=== PATIENT | female | born 1955 | race Caucasian/White ===

== ENCOUNTER 2017-04-24 15:53 | Emergency (ER) | payer MEDICARE, BC ==
[2017-04-24 16:10] VITALS: BP 158/72
--- NOTE | 2017-04-24 16:24 | UC ---
Complaint Female HPI - HPI Summary HPI Summary: 61 y/o female presents to the urgent care c/o pressure, frequency and burning on urination and left lower quadrant pain since yesterday. Pt states her pain is 8/10 radiating to her left lower back. Pt states she has HX of kidney stones approximately 2 years ago where her ureter was burned during the procedure to remove stone. Pt also states PMHX DM type II, diverticulitis and gastroperesis, B/L hip replacement. She had a bowel moment yesterday with mild blood in the stool. Pt has taking Oxycodone 10mg PO and ibuprofen 800mg PO this morning at 7 am to alleviate symptoms. Last night she had a normal BM, but she thinks she saw blood in the stool. This morning her BM were normal. Pt denies vaginal discharge or bleeding, SOB, chest pain, N/V/D. - History Of Current Complaint Chief Complaint: UCGU Stated Complaint: URINARY Time Seen by Provider: 04/24/17 16:10 Hx Obtained From: Patient Hx Last Menstrual Period: menopausal ?: No Onset/Duration: Gradual Onset, Lasting Days - 1 day, Still Present Timing: Intermittent, Lasting Minutes Severity Initially: Mild Severity Currently: Moderate Pain Intensity: 8 Pain Scale Used: 0-10 Numeric Character: Burning, Colicy Aggravating Factor(s): Urination Alleviating Factor(s): Meds Associated Signs And Symptoms: Positive: Back Pain. Negative: Fever, Vaginal Bleeding/Discharge, Vaginal Discharge, Nausea, Vomiting(# Of Episodes =), Genital Swelling, Genital Blisters - Risk Factors Ectopic Risk Factor: Negative - Allergies/Home Medications Allergies/Adverse Reactions: Allergies Allergy/AdvReac Type Severity Reaction Status Date / Time Sulfa Antibiotics Allergy Rash Verified 04/24/17 16:10 Trazodone Allergy Shakes Verified 04/24/17 16:10 Zolpidem [From Ambien] Allergy Hallucinati Verified 04/24/17 16:10 ons Home Medications: Home Medications ALPRAZolam TAB* [Xanax TAB*] 0.5 mg PO BEDTIME PRN 04/24/17 [History Confirmed 04/24/17] DULoxetine DR CAP* [Cymbalta CAP*] 60 mg PO DAILY 04/24/17 [History Confirmed ] Ibuprofen TAB* [Motrin TAB* 800 MG] 800 mg PO Q6H PRN 04/24/17 [History Confirmed 04/24/17] Levothyroxine TAB* [Synthroid 88 MCG TAB*] 88 mcg PO SEE INSTRUCTIONS 04/24/17 [ History Confirmed 04/24/17] Oxycodone TAB(NF) [Oxycodone HCl 10 MG] 10 mg PO SEE INSTRUCTIONS PRN 04/24/17 [ History Confirmed 04/24/17] Promethazine TAB* [Phenergan Tab*] 25 mg PO Q6H PRN 04/24/17 [History Confirmed 04/24/17] metFORMIN* [Glucophage 500 MG TAB *] 1,000 mg PO DAILY 04/24/17 [History Confirmed 04/24/17] metFORMIN* [Glucophage 500 MG TAB *] 500 mg PO BEDTIME 04/24/17 [History Confirmed 04/24/17] PMH/Surg Hx/FS Hx/Imm Hx Previously Healthy: Yes Endocrine History: Diabetes, Hypothyroidism Respiratory History: Asthma GI/ History: Kidney Stones, Diverticulitis Other GI/ History: gastroperesis - Surgical History Surgical History: Yes Surgery Procedure, Year, and Place: B/L HIP REPLACEMENT. KIDNEY STONE SX. APPY. T&A. CHOLECYTECTOMY. HYSTERECTOMY. PINULECTOMY. RIGHT ELBOW SX. NEPHROSTOMY TUBE. LAP EXPLORATORY. BREAST LIFT - Family History Known Family History: Positive: Cardiac Disease, Hypertension, Diabetes - Social History Occupation: Employed Full-time Lives: With Family Alcohol Use: Rare Substance Use Type: None Smoking Status (MU): Former Smoker When Did the Patient Quit Smoking/Using Tobacco: 2006 Review of Systems Constitutional: Negative Skin: Negative Eyes: Negative ENT: Negative Respiratory: Negative Cardiovascular: Negative Gastrointestinal: Abdominal Pain - LLQ Genitourinary: Frequency, Urgency Motor: Negative Neurovascular: Negative Musculoskeletal: Negative Neurological: Negative Psychological: Negative Is Patient Immunocompromised?: No All Other Systems Reviewed And Are Negative: Yes Physical Exam Triage Information Reviewed: Yes Vital Signs: Initial Vital Signs Temp 97.3 F 04/24/17 15:59 Pulse 97 04/24/17 15:59 Resp 18 04/24/17 15:59 BP 158/72 04/24/17 15:59 Pulse Ox 97 04/24/17 15:59 - Additional Comments VITAL SIGNS: Reviewed. GENERAL: Patient is a well developed and nourished who is lying comfortable in the stretcher. Patient is not in any acute respiratory distress. HEAD AND FACE: Normocephalic and atraumatic. EYES: PERRLA, EOMI x 2, No injected conjunctiva. EARS: Hearing grossly intact. Ear canals and tympanic membranes are WNL. MOUTH: Oropharynx within normal limits. NECK: Supple, trachea is midline, no adenopathy, no JVD. CHEST: Symmetric, no tenderness at palpation LUNGS: Clear to auscultation bilaterally. No wheezing or crackles. ABDOMEN::: Nontender, Flat with no distention. No surface trauma, normal bowel sounds present in all four quadrants. Moderate tenderness on LLQ on deep palpation, no rebound, no guarding, rigidity to palpation. No masses palpated, no pulsation in epigastric area. No organomegaly. Negative Kiln signs. No periumbilical tenderness. NT over McBurneys point. Left side suprapubic tenderness with no distension. Good femoral pulses bilaterally. No hernia noted. No CVAT bilaterally EXTREMITIES: FROM in all major joints, no edema, no cyanosis or clubbing. NEURO: Alert and oriented x 3. No acute neurological deficits. Speech is normal. SKIN: Dry and warm Complaint Female Dx - Course Course Of Treatment: 61 y/o female presents to the urgent care c/o pressure, frequency and burning on urination and left lower quadrant pain since yesterday. Pt states her pain is 8/10 radiating to her left lower back. Pt states she has HX of kidney stones approximately 2 years ago where her ureter was burned during the procedure to remove stone. Pt also states PMHX DM type II , diverticulitis and gastroperesis, B/L hip replacement. She had a bowel moment yesterday with mild blood in the stool. Pt has taking Oxycodone 10mg PO and ibuprofen 800mg PO this morning at 7 am to alleviate symptoms. Last night she had a normal BM, but she thinks she saw blood in the stool. This morning her BM were normal. Pt denies vaginal discharge or bleeding, SOB, chest pain, N/V/D. HX obtained. Pt with moderate LLQ abdominal pain on examination. No CVA tenderness. UA ordered to r/o UTI, UA: +for ketones, glucose, protein and leukoesteraces. No blood in the urine, probably is not a kidney stone. However at this moment we don't have CT scan service to r/o Diverticulitis or any other abnormality. Pt w/ Hx of diverticulitis. Pt declien pelvic exam since she denies vaginal discharge. Pt given Toradol Im inj to alleviate pain. Pt tolerated well IM inj. PT will be treated for acute diverticulitis, Rx Metronidazole and Ciprofloxacin PO. Pt's pain decreae w. IM inj. However Pt strongly advised to go to the ER if new or worsening symptoms develop for further images and evaluation. Pt understood and agreed w/ D/C instructions. Pt hemodinamically stable at D/C A&OX3 and left clinic ambulating. - Differential Dx/Diagnosis Differential Diagnosis/HQI/PQRI: Cervicitis, Pelvic Inflammatory Disease, Renal Colic, Ureteral Stone, Urinary Tract Infection, Other - diverticulitis, Provider Diagnoses: 1- Acute LLQ abdominal pain. 2- Diveticulitis. 3-Elevated BP w/o HX of HTN Discharge - Discharge Plan Condition: Stable Disposition: HOME Prescriptions: Ciprofloxacin TAB* [Cipro 500 MG TAB*] 500 mg PO BID #20 tab Metronidazole [Flagyl 500 MG TAB] 500 mg PO TID #30 tab Patient Education Materials: Diverticulitis (ED), Low Sodium Diet (ED) Referrals: [facility] [place] [facility] [Outside] - 2 Days Non Staff,Doctor [Primary Care Provider] - Rolando Shi MD [Medical Doctor] - 2 Days Additional Instructions: 1- Please take antibiotic as directed to avoid resistance. 2- Increase fluid intake, eat soft meals and as your symptoms improve advance to your regular diet. Then start eating fiber in your diet 3- continue taking Ibuprofen PO q6-8hrs prn after meals to alleviate pain. 4- Please f/u with your PCP Dr Elizabeth Wood in 2-3 days for further evaluation and treatment, Or the GI Dr Shi. 5- If symptoms do not improve and severe abdominal pain develops please go immediately to the ER for further evaluation and treatment 6- your BP is elevated today please decrease salt in your diet and monitor BP at home, if it continues to be elevated please f/u with your PCP
[2017-04-24] MEDS ORDERED: Ketorolac INJ* 60 MG/2 ML VIAL IM ONE (16:39)
== END 2017-04-24 17:23 | disposition home or self-care (01) ==
LOC: UCCORT 15:53
DX: R10.32 Left lower quadrant pain (principal); K57.92 Diverticulitis of intestine, part unspecified, without perforation or abscess without bleeding; R03.0 Elevated blood-pressure reading, without diagnosis of hypertension; R30.0 Dysuria; E11.9 Type 2 diabetes mellitus without complications; Z79.84 Long term (current) use of oral hypoglycemic drugs; E03.9 Hypothyroidism, unspecified; J45.909 Unspecified asthma, uncomplicated; Z87.442 Personal history of urinary calculi; Z96.643 Presence of artificial hip joint, bilateral; Z90.49 Acquired absence of other specified parts of digestive tract; Z90.710 Acquired absence of both cervix and uterus; Z88.2 Allergy status to sulfonamides; Z88.8 Allergy status to other drugs, medicaments and biological substances; Z87.891 Personal history of nicotine dependence
CPT/HCPCS: 81003; 87086; 99202; G0463; J1885